=== PATIENT | female | born 1980 | race Caucasian/White ===

== ENCOUNTER 2017-09-24 12:47 | Emergency (ER) | payer OTHER ==
[~2017-09-24] VITALS: Ht 165.1 cm; Wt 80.7 kg
[~2017-09-24 12:47] MED LIST: CLEOCIN HCL150 MG PO; CLEOCIN HCL300 MG PO; FLEXERIL PO; HYDROCODONE-AP1 EAC6 PO; IBUPROFEN 200200 M1 PO; IBUPROFEN 400400 M2 PO; IBUPROFEN 800800 M1 PO; IBUPROFEN 800800 MG PO; LIDOCAINE VISC100 M1 SWISH&SPIT; MEDROLDOSEPACK PO; MOBIC7.5 MG PO; NAPROSYN500 MG PO; NOHOMEMEDICATIONS; NORCO 5-325 TA1 EAC1 PO; NORCO 5-325 TA1 EACH PO; ROBAXIN 750 MG750 M1 PO; TRAMADOL 50 MG50 MG PO; TYLENOL325 MG PO
[2017-09-24] MEDS ORDERED: NORCO 5-325 TA1 EAC1 PO (15:38)
[2017-09-24 16:18] VITALS: BP 121/85
[2018-05-13] MEDS ORDERED: NORCO 5-325 TA1 EACH PO (13:33)
[2018-05-13] MEDS ORDERED: MOBIC7.5 MG PO (13:33)
[2018-05-13] MEDS ORDERED: NORFLEX100 MG PO (13:33)
[2018-06-13] MEDS ORDERED: ULTRAM 50MG TAB50 MG PO (10:16)
[2018-06-13] MEDS ORDERED: CYCLOBENZAPRINE5 MG PO (10:16)
[2018-06-20] MEDS ORDERED: MOBIC15 MG PO (10:32)
[2018-06-20] MEDS ORDERED: ULTRAM 50MG TAB50 MG PO (10:32)
[2018-06-28] MEDS ORDERED: DICLOFENAC SODI25 MG PO (16:47)
== END 2017-09-24 16:19 | disposition home or self-care (01) ==
LOC: M.ERS 12:47
DX: S62.366A Nondisplaced fracture of neck of fifth metacarpal bone, right hand, initial encounter for closed fracture (principal); Y99.8 Other external cause status; V49.3XXA Car occupant (driver) (passenger) injured in unspecified nontraffic accident, initial encounter; Y93.89 Activity, other specified; Y92.89 Other specified places as the place of occurrence of the external cause; Z90.710 Acquired absence of both cervix and uterus; Z98.890 Other specified postprocedural states; Z88.5 Allergy status to narcotic agent; Z88.0 Allergy status to penicillin

== ENCOUNTER 2017-10-15 09:36 | Emergency (ER) | payer OTHER ==
[~2017-10-15] VITALS: Ht 165.1 cm; Wt 80.7 kg
[2017-10-15] MEDS ORDERED: IBUPROFEN 800800 MG PO (09:53)
[2017-10-15] MEDS ORDERED: HYDROCODON-ACE1 EAC7 PO (09:53)
[2017-10-15] MEDS ORDERED: FLEXERIL PO (09:53)
[2017-10-15 10:14] VITALS: BP 132/96
[2018-05-13] MEDS ORDERED: NORFLEX100 MG PO (13:33)
[2018-05-13] MEDS ORDERED: NORCO 5-325 TA1 EACH PO (13:33)
[2018-05-13] MEDS ORDERED: MOBIC7.5 MG PO (13:33)
[2018-06-13] MEDS ORDERED: CYCLOBENZAPRINE5 MG PO (10:16)
[2018-06-13] MEDS ORDERED: ULTRAM 50MG TAB50 MG PO (10:16)
[2018-06-20] MEDS ORDERED: MOBIC15 MG PO (10:32)
[2018-06-20] MEDS ORDERED: ULTRAM 50MG TAB50 MG PO (10:32)
[2018-06-28] MEDS ORDERED: DICLOFENAC SODI25 MG PO (16:47)
== END 2017-10-15 10:16 | disposition home or self-care (01) ==
LOC: M.ERS 09:36
DX: S39.012A Strain of muscle, fascia and tendon of lower back, initial encounter (principal); Z90.710 Acquired absence of both cervix and uterus; Z98.890 Other specified postprocedural states; Z88.0 Allergy status to penicillin; Z88.5 Allergy status to narcotic agent; Z88.8 Allergy status to other drugs, medicaments and biological substances; X58.XXXA Exposure to other specified factors, initial encounter; Y93.89 Activity, other specified; Y92.89 Other specified places as the place of occurrence of the external cause; Y99.8 Other external cause status

== ENCOUNTER 2017-10-31 09:37 | Emergency (ER) | payer OTHER ==
[~2017-10-31] VITALS: Ht 165.1 cm; Wt 80.7 kg
[~2017-10-31 09:37] MED LIST changes: +HYDROCODON-ACE1 EAC7 PO
[2017-10-31] MEDS ORDERED: ULTRAM 50MG TAB50 MG PO (10:39)
[2017-10-31 10:46] VITALS: BP 149/95
[2018-05-13] MEDS ORDERED: MOBIC7.5 MG PO (13:33)
[2018-05-13] MEDS ORDERED: NORCO 5-325 TA1 EACH PO (13:33)
[2018-05-13] MEDS ORDERED: NORFLEX100 MG PO (13:33)
[2018-06-13] MEDS ORDERED: ULTRAM 50MG TAB50 MG PO (10:16)
[2018-06-13] MEDS ORDERED: CYCLOBENZAPRINE5 MG PO (10:16)
[2018-06-20] MEDS ORDERED: ULTRAM 50MG TAB50 MG PO (10:32)
[2018-06-20] MEDS ORDERED: MOBIC15 MG PO (10:32)
[2018-06-28] MEDS ORDERED: DICLOFENAC SODI25 MG PO (16:47)
== END 2017-10-31 10:46 | disposition home or self-care (01) ==
LOC: M.ERS 09:37
DX: S60.221A Contusion of right hand, initial encounter (principal); Z88.0 Allergy status to penicillin; Z88.5 Allergy status to narcotic agent; W22.8XXA Striking against or struck by other objects, initial encounter; Y93.89 Activity, other specified; Y92.89 Other specified places as the place of occurrence of the external cause; Y99.8 Other external cause status

== ENCOUNTER 2017-11-21 09:43 | Emergency (ER) | payer OTHER ==
[~2017-11-21] VITALS: Ht 165.1 cm; Wt 80.7 kg
[~2017-11-21 09:43] MED LIST changes: +ULTRAM 50MG TAB50 MG PO
[2017-11-21] MEDS ORDERED: HYDROCODONE-AP1 EAC6 PO (10:57)
[2017-11-21 11:21] VITALS: BP 127/82
[2018-05-13] MEDS ORDERED: NORCO 5-325 TA1 EACH PO (13:33)
[2018-05-13] MEDS ORDERED: NORFLEX100 MG PO (13:33)
[2018-05-13] MEDS ORDERED: MOBIC7.5 MG PO (13:33)
[2018-06-13] MEDS ORDERED: CYCLOBENZAPRINE5 MG PO (10:16)
[2018-06-13] MEDS ORDERED: ULTRAM 50MG TAB50 MG PO (10:16)
[2018-06-20] MEDS ORDERED: ULTRAM 50MG TAB50 MG PO (10:32)
[2018-06-20] MEDS ORDERED: MOBIC15 MG PO (10:32)
[2018-06-28] MEDS ORDERED: DICLOFENAC SODI25 MG PO (16:47)
== END 2017-11-21 11:23 | disposition home or self-care (01) ==
LOC: M.ERS 09:43
DX: M25.511 Pain in right shoulder (principal); Z88.6 Allergy status to analgesic agent; Z88.5 Allergy status to narcotic agent; Z88.0 Allergy status to penicillin

== ENCOUNTER 2017-12-19 09:46 | Emergency (ER) | payer OTHER ==
[~2017-12-19] VITALS: Ht 165.1 cm; Wt 80.7 kg
[2017-12-19 09:53] VITALS: BP 137/105
[2017-12-19] MEDS ORDERED: FLEXERIL PO (10:20)
[2017-12-19] MEDS ORDERED: PERCOCET PO (10:20)
[2018-05-13] MEDS ORDERED: NORFLEX100 MG PO (13:33)
[2018-05-13] MEDS ORDERED: MOBIC7.5 MG PO (13:33)
[2018-05-13] MEDS ORDERED: NORCO 5-325 TA1 EACH PO (13:33)
[2018-06-13] MEDS ORDERED: ULTRAM 50MG TAB50 MG PO (10:16)
[2018-06-13] MEDS ORDERED: CYCLOBENZAPRINE5 MG PO (10:16)
[2018-06-20] MEDS ORDERED: MOBIC15 MG PO (10:32)
[2018-06-20] MEDS ORDERED: ULTRAM 50MG TAB50 MG PO (10:32)
[2018-06-28] MEDS ORDERED: DICLOFENAC SODI25 MG PO (16:47)
== END 2017-12-19 10:32 | disposition home or self-care (01) ==
LOC: M.ERS 09:46
DX: S33.5XXA Sprain of ligaments of lumbar spine, initial encounter (principal); X58.XXXA Exposure to other specified factors, initial encounter; Y93.89 Activity, other specified; Y92.89 Other specified places as the place of occurrence of the external cause; Y99.8 Other external cause status; Z90.49 Acquired absence of other specified parts of digestive tract; Z90.710 Acquired absence of both cervix and uterus; Z88.0 Allergy status to penicillin; Z88.5 Allergy status to narcotic agent

== ENCOUNTER 2018-01-09 12:28 | Emergency (ER) | payer OTHER ==
[~2018-01-09] VITALS: Ht 165.1 cm; Wt 80.7 kg
[~2018-01-09 12:28] MED LIST changes: +PERCOCET PO
[2018-01-09] MEDS ORDERED: NOHOMEMEDICATIONS (12:40)
[2018-01-09 13:29] VITALS: BP 135/79
[2018-05-13] MEDS ORDERED: NORFLEX100 MG PO (13:33)
[2018-05-13] MEDS ORDERED: NORCO 5-325 TA1 EACH PO (13:33)
[2018-05-13] MEDS ORDERED: MOBIC7.5 MG PO (13:33)
[2018-06-13] MEDS ORDERED: ULTRAM 50MG TAB50 MG PO (10:16)
[2018-06-13] MEDS ORDERED: CYCLOBENZAPRINE5 MG PO (10:16)
[2018-06-20] MEDS ORDERED: ULTRAM 50MG TAB50 MG PO (10:32)
[2018-06-20] MEDS ORDERED: MOBIC15 MG PO (10:32)
[2018-06-28] MEDS ORDERED: DICLOFENAC SODI25 MG PO (16:47)
== END 2018-01-09 13:31 | disposition home or self-care (01) ==
LOC: M.ERS 12:28
DX: M25.511 Pain in right shoulder (principal); Z76.5 Malingerer [conscious simulation]; Z90.49 Acquired absence of other specified parts of digestive tract; Z90.710 Acquired absence of both cervix and uterus; Z88.5 Allergy status to narcotic agent; Z88.0 Allergy status to penicillin

== ENCOUNTER 2018-04-09 10:16 | Emergency (ER) | payer OTHER ==
[~2018-04-09] VITALS: Ht 165.1 cm; Wt 80.7 kg
[2018-04-09] MEDS ORDERED: FLEXERIL PO (10:42)
[2018-04-09] MEDS ORDERED: IBUPROFEN 800800 M1 PO (10:42)
[2018-04-09] MEDS ORDERED: TRAMADOL 50 MG50 MG PO (10:42)
[2018-04-09 10:45] VITALS: BP 139/88
[2018-05-13] MEDS ORDERED: NORFLEX100 MG PO (13:33)
[2018-05-13] MEDS ORDERED: MOBIC7.5 MG PO (13:33)
[2018-05-13] MEDS ORDERED: NORCO 5-325 TA1 EACH PO (13:33)
[2018-06-13] MEDS ORDERED: ULTRAM 50MG TAB50 MG PO (10:16)
[2018-06-13] MEDS ORDERED: CYCLOBENZAPRINE5 MG PO (10:16)
[2018-06-20] MEDS ORDERED: ULTRAM 50MG TAB50 MG PO (10:32)
[2018-06-20] MEDS ORDERED: MOBIC15 MG PO (10:32)
[2018-06-28] MEDS ORDERED: DICLOFENAC SODI25 MG PO (16:47)
== END 2018-04-09 10:53 | disposition home or self-care (01) ==
LOC: M.ERS 10:16
DX: M54.31 Sciatica, right side (principal); Z90.49 Acquired absence of other specified parts of digestive tract; Z90.710 Acquired absence of both cervix and uterus; Z88.0 Allergy status to penicillin; Z88.5 Allergy status to narcotic agent

== ENCOUNTER 2018-05-21 12:45 | Emergency (ER) | payer OTHER ==
[~2018-05-21] VITALS: Ht 165.1 cm; Wt 80.7 kg
[~2018-05-21 12:45] MED LIST changes: +NORFLEX100 MG PO
[2018-05-21 14:33] VITALS: BP 141/93
[2018-05-21] MEDS ORDERED: NORFLEX100 MG PO (17:45)
[2018-05-21] MEDS ORDERED: ULTRAM 50MG TAB50 MG PO (17:45)
[2018-05-21] MEDS ORDERED: NABUMETONE 750750 M1 PO (17:45)
[2018-06-13] MEDS ORDERED: ULTRAM 50MG TAB50 MG PO (10:16)
[2018-06-13] MEDS ORDERED: CYCLOBENZAPRINE5 MG PO (10:16)
[2018-06-20] MEDS ORDERED: MOBIC15 MG PO (10:32)
[2018-06-20] MEDS ORDERED: ULTRAM 50MG TAB50 MG PO (10:32)
== END 2018-05-21 14:34 | disposition home or self-care (01) ==
LOC: M.ERS 12:45
DX: M25.511 Pain in right shoulder (principal); Z90.49 Acquired absence of other specified parts of digestive tract; Z90.710 Acquired absence of both cervix and uterus; Z88.0 Allergy status to penicillin; Z88.5 Allergy status to narcotic agent; Z88.8 Allergy status to other drugs, medicaments and biological substances

== ENCOUNTER 2018-12-23 19:51 | Emergency (ER) | payer OTHER ==
[~2018-12-23] VITALS: Ht 165.1 cm; Wt 80.7 kg
[~2018-12-23 19:51] MED LIST changes: +CYCLOBENZAPRINE5 MG PO; +DICLOFENAC SODI25 MG PO; +DICLOFENAC SODI75 MG PO; +KEFLEX500 M1 PO; +MOBIC15 MG PO; +NABUMETONE 750750 M1 PO; +PREDNISONE 20 M20 MG PO; +VOLTAREN GEL 1100 G2 TOP
[2018-12-23] MEDS ORDERED: NORCO 5-325 TA1 EACH PO ×2 (20:19→20:21)
[2018-12-23 20:35] VITALS: BP 131/86
== END 2018-12-23 20:35 | disposition home or self-care (01) ==
LOC: M.ERS 19:51
DX: M25.511 Pain in right shoulder (principal); Z88.6 Allergy status to analgesic agent; Z88.5 Allergy status to narcotic agent; Z88.0 Allergy status to penicillin; Z90.710 Acquired absence of both cervix and uterus; Z90.89 Acquired absence of other organs; Z90.49 Acquired absence of other specified parts of digestive tract

== ENCOUNTER 2019-04-06 12:11 | Emergency (ER) | payer OTHER ==
[~2019-04-06] VITALS: Ht 165.1 cm; Wt 80.7 kg
[2019-04-06] MEDS ORDERED: MOBIC7.5 MG PO (12:52)
[2019-04-06 13:17] VITALS: BP 141/82
== END 2019-04-06 13:18 | disposition home or self-care (01) ==
LOC: M.ERS 12:11
DX: G89.29 Other chronic pain (principal); M25.511 Pain in right shoulder; Z88.0 Allergy status to penicillin; Z88.5 Allergy status to narcotic agent; Z88.6 Allergy status to analgesic agent; Z90.49 Acquired absence of other specified parts of digestive tract; Z90.710 Acquired absence of both cervix and uterus; Z98.890 Other specified postprocedural states

== ENCOUNTER 2019-09-14 14:57 | Emergency (ER) | payer OTHER ==
[~2019-09-14] VITALS: Ht 165.1 cm; Wt 80.7 kg
[2019-09-14] MEDS ORDERED: TRAMADOL 50 MG50 MG PO (16:09)
[2019-09-14 16:40] VITALS: BP 125/82
== END 2019-09-14 16:41 | disposition home or self-care (01) ==
LOC: M.ERS 14:57
DX: S43.491A Other sprain of right shoulder joint, initial encounter (principal); Z90.89 Acquired absence of other organs; Z90.49 Acquired absence of other specified parts of digestive tract; Z90.710 Acquired absence of both cervix and uterus; Z98.890 Other specified postprocedural states; Z88.6 Allergy status to analgesic agent; Z88.0 Allergy status to penicillin; Z88.5 Allergy status to narcotic agent; X50.0XXA Overexertion from strenuous movement or load, initial encounter; Y92.89 Other specified places as the place of occurrence of the external cause; Y93.89 Activity, other specified; Y99.8 Other external cause status

== ENCOUNTER 2019-10-05 19:16 | Emergency (ER) | payer OTHER ==
[~2019-10-05] VITALS: Ht 165.1 cm; Wt 80.7 kg
[2019-10-05] MEDS ORDERED: FLEXERIL PO (20:33)
[2019-10-05] MEDS ORDERED: HYDROCODON-ACE1 EAC7 PO (20:33)
[2019-10-05 20:43] VITALS: BP 143/98
== END 2019-10-05 20:45 | disposition home or self-care (01) ==
LOC: M.ERS 19:16
DX: M54.5 Low back pain (principal); Z90.89 Acquired absence of other organs; Z90.710 Acquired absence of both cervix and uterus; Z98.890 Other specified postprocedural states; Z88.6 Allergy status to analgesic agent; Z88.0 Allergy status to penicillin; Z88.5 Allergy status to narcotic agent

== ENCOUNTER 2019-11-20 19:33 | Emergency (ER) | payer OTHER ==
[~2019-11-20] VITALS: Ht 167.6 cm; Wt 70.3 kg
[2019-11-20] MEDS ORDERED: IBUPROFEN 800800 M1 PO (20:14)
[2019-11-20] MEDS ORDERED: NORCO 5-325 TA1 EAC1 PO (20:14)
[2019-11-20 20:37] VITALS: BP 138/96
== END 2019-11-20 20:37 | disposition home or self-care (01) ==
LOC: M.ERS 19:33
DX: M25.511 Pain in right shoulder (principal); Z90.710 Acquired absence of both cervix and uterus; Z90.49 Acquired absence of other specified parts of digestive tract; Z88.0 Allergy status to penicillin; Z88.6 Allergy status to analgesic agent

== ENCOUNTER 2019-11-26 13:43 | Emergency (ER) | payer OTHER ==
[~2019-11-26] VITALS: Ht 165.1 cm; Wt 80.7 kg
[2019-11-26] MEDS ORDERED: NAPROSYN500 MG PO ×2 (15:25→15:26)
[2019-11-26] MEDS ORDERED: NORCO 5-325 TA1 EAC1 PO (15:25)
[2019-11-26] MEDS ORDERED: MEDROLDOSEPACK PO (15:25)
[2019-11-26 15:38] VITALS: BP 145/85
== END 2019-11-26 15:38 | disposition home or self-care (01) ==
LOC: M.ERS 13:43
DX: S39.012A Strain of muscle, fascia and tendon of lower back, initial encounter (principal); M54.42 Lumbago with sciatica, left side; Z90.710 Acquired absence of both cervix and uterus; Z90.49 Acquired absence of other specified parts of digestive tract; Z88.0 Allergy status to penicillin; Z88.6 Allergy status to analgesic agent; X50.0XXA Overexertion from strenuous movement or load, initial encounter; Y93.89 Activity, other specified; Y92.89 Other specified places as the place of occurrence of the external cause; Y99.8 Other external cause status

== ENCOUNTER 2019-12-09 20:22 | Emergency (ER) | payer OTHER ==
[~2019-12-09] VITALS: Ht 165.1 cm; Wt 80.7 kg
[2019-12-09] MEDS ORDERED: NORCO 5-325 TA1 EAC1 PO (21:17)
[2019-12-09 21:41] VITALS: BP 159/96
== END 2019-12-09 21:42 | disposition home or self-care (01) ==
LOC: M.ERS 20:22
DX: M25.512 Pain in left shoulder (principal); Z90.710 Acquired absence of both cervix and uterus; Z90.49 Acquired absence of other specified parts of digestive tract; Z88.0 Allergy status to penicillin; Z88.6 Allergy status to analgesic agent

== ENCOUNTER 2019-12-23 17:55 | Emergency (ER) | payer OTHER ==
[~2019-12-23] VITALS: Ht 165.1 cm; Wt 80.7 kg
[2019-12-23] MEDS ORDERED: IBUPROFEN 800800 MG PO (18:18)
[2019-12-23] MEDS ORDERED: FLEXERIL PO (18:18)
[2019-12-23 18:24] VITALS: BP 143/95
== END 2019-12-23 18:25 | disposition home or self-care (01) ==
LOC: M.ERS 17:55
DX: M54.5 Low back pain (principal); Z88.0 Allergy status to penicillin; Z88.6 Allergy status to analgesic agent; Z90.49 Acquired absence of other specified parts of digestive tract; Z90.710 Acquired absence of both cervix and uterus; Z90.89 Acquired absence of other organs

== ENCOUNTER 2020-01-05 14:41 | Emergency (ER) | payer OTHER ==
[~2020-01-05] VITALS: Ht 165.1 cm; Wt 80.7 kg
[2020-01-05 16:19] LABS: URINE BILIRUBIN NEGATIVE (Negative); URINE BLOOD 1+ (Negative); URINE CLARITY CLEAR; URINE COLOR YELLOW; URINE GLUCOSE-RANDOM NEGATIVE (Negative); URINE KETONES NEGATIVE (Negative); URINE LEUKOCYTES-REFLEX NEGATIVE (Negative); URINE NITRITE-REFLEX NEGATIVE (Negative); URINE PROTEIN NEGATIVE (Negative); URINE SPECIFIC GRAVITY <= 1.005 (1.005-1.030); URINE UROBILINOGEN 0.2 E.U./dl (0.2-1.0)
[2020-01-05] MEDS ORDERED: PREDNISONE 10 M10 M1 PO (16:30)
[2020-01-05] MEDS ORDERED: MELOXICAM15 MG PO (16:30)
[2020-01-05] MEDS ORDERED: DIAZEPAM 5 MG5 MG PO (16:30)
[2020-01-05 16:33] LABS: BACTERIA-REFLEX 1-9 Few /HPF (None Seen); CASTS None Seen /LPF (None Seen); CRYSTALS None Seen /LPF (None Seen); MUCUS None Seen strn/LPF (None Seen); SQUAMOUS >10 Many /LPF (0-3)
[2020-01-05 16:35] LABS: URINE RBC 0-2 Rare /HPF (0-2); URINE WBC-REFLEX 0-5 Rare /HPF (0-5)
[2020-01-05 16:39] LABS: AMP/METHAMP Negative (Negative); BARBITURATES Negative (Negative); BENZODIAZEPINES Negative (Negative); COCAINE Negative (Negative); METHADONE Negative (Negative); OPIATES Negative (Negative); PCP Negative (Negative); THC Negative (Negative)
[2020-01-05] MEDS ORDERED: HYDROCODON-ACE1 EAC7 PO (16:55)
[2020-01-05 17:14] VITALS: BP 129/93
== END 2020-01-05 17:15 | disposition home or self-care (01) ==
LOC: M.ERS 14:41
PROVIDERS: Personal Emergency Response Attendant
DX: S33.5XXA Sprain of ligaments of lumbar spine, initial encounter (principal); Z88.5 Allergy status to narcotic agent; Z88.6 Allergy status to analgesic agent; Z88.0 Allergy status to penicillin; Z90.710 Acquired absence of both cervix and uterus; Z90.89 Acquired absence of other organs; Z79.899 Other long term (current) drug therapy; X58.XXXA Exposure to other specified factors, initial encounter; Y93.89 Activity, other specified; Y92.89 Other specified places as the place of occurrence of the external cause; Y99.8 Other external cause status

== ENCOUNTER 2020-02-01 20:32 | Emergency (ER) | payer OTHER ==
[~2020-02-01] VITALS: Ht 165.1 cm; Wt 80.7 kg
[~2020-02-01 20:32] MED LIST changes: +DIAZEPAM 5 MG5 MG PO; +MELOXICAM15 MG PO; +PREDNISONE 10 M10 M1 PO
[2020-02-01] MEDS ORDERED: LIDODERM1 EACH TRANSDERM (21:04)
[2020-02-01] MEDS ORDERED: NAPROSYN500 MG PO (21:04)
[2020-02-01 21:45] VITALS: BP 145/84
== END 2020-02-01 21:46 | disposition home or self-care (01) ==
LOC: M.ERS 20:32
DX: M25.511 Pain in right shoulder (principal); Z88.6 Allergy status to analgesic agent; Z88.5 Allergy status to narcotic agent; Z88.0 Allergy status to penicillin; Z90.710 Acquired absence of both cervix and uterus; Z90.89 Acquired absence of other organs; Z90.49 Acquired absence of other specified parts of digestive tract; X50.0XXA Overexertion from strenuous movement or load, initial encounter; Y93.89 Activity, other specified; Y92.89 Other specified places as the place of occurrence of the external cause; Y99.9 Unspecified external cause status

== ENCOUNTER 2020-02-08 21:13 | Emergency (ER) | payer OTHER ==
[~2020-02-08] VITALS: Ht 165.1 cm; Wt 80.7 kg
[~2020-02-08 21:13] MED LIST changes: +LIDODERM1 EACH TRANSDERM
[2020-02-08 22:00] LABS: URINE BILIRUBIN NEGATIVE (Negative); URINE BLOOD TRACE (Negative); URINE CLARITY CLEAR; URINE COLOR YELLOW; URINE GLUCOSE-RANDOM NEGATIVE (Negative); URINE KETONES NEGATIVE (Negative); URINE LEUKOCYTES-REFLEX NEGATIVE (Negative); URINE NITRITE-REFLEX NEGATIVE (Negative); URINE PROTEIN NEGATIVE (Negative); URINE SPECIFIC GRAVITY >= 1.030 (1.005-1.030)
[2020-02-08 22:27] LABS: ABSOLUTE BASOPHILS 0.1 thou/uL (0.0-0.2); ABSOLUTE EOSINOPHILS 0.2 thou/uL (0.0-0.7); ABSOLUTE LYMPHOCYTES 3.7 thou/uL (0.8-5.3); ABSOLUTE MONOCYTES 0.8 thou/uL (0.0-1.2); ABSOLUTE NEUTROPHILS 6.5 thou/uL (1.6-8.1); BASOPHILS 0.9 %; EOSINOPHILS 1.5 %; HEMATOCRIT 42.7 % (37.0-47.0); HEMOGLOBIN 14.5 gm/dL (12.0-15.0); LYMPHOCYTES 32.9 %; MCH 31.5 pg (26.0-34.0); MCHC 33.9 g/dL (28.0-37.0); MCV 92.7 fL (80.0-100.0); MONOCYTES 6.8 %; MPV 6.9 fl. (7.2-11.1); NUCLEATED RBCS 0 /100WBC; PLATELET COUNT* 377 thou/uL (150-400); POLYS 57.9 %; RBC 4.61 mil/uL (4.20-5.00); RDW-CV 12.8 % (10.5-14.5); WBC 11.3 thou/uL (4.0-11.0)
[2020-02-08 22:34] LABS: CREATININE 0.8 mg/dL (0.6-1.3); POTASSIUM 3.6 mmol/L (3.5-5.1)
[2020-02-08 22:39] LABS: ALBUMIN 3.6 g/dL (3.4-5.0); TOTAL BILIRUBIN 0.8 mg/dL (<0.1-1.0); TOTAL PROTEIN 7.9 g/dL (6.4-8.2)
[2020-02-08] MEDS ORDERED: DIAZEPAM 5 MG5 M1 PO (23:41)
[2020-02-08] MEDS ORDERED: EC-NAPROSYN500 M1 PO (23:41)
[2020-02-08 23:44] VITALS: BP 141/74
[2020-02-10 09:08] LABS: HEPATITIS B SURFACE AG Negative (Negative)
== END 2020-02-08 23:52 | disposition home or self-care (01) ==
LOC: M.ERS 21:13
PROVIDERS: Personal Emergency Response Attendant
DX: N83.202 Unspecified ovarian cyst, left side (principal); Z88.0 Allergy status to penicillin; Z88.5 Allergy status to narcotic agent; Z88.6 Allergy status to analgesic agent; Z90.710 Acquired absence of both cervix and uterus; Z90.89 Acquired absence of other organs

== ENCOUNTER 2020-04-01 13:11 | Emergency (ER) | payer OTHER ==
[~2020-04-01] VITALS: Ht 165.1 cm; Wt 79.4 kg
[~2020-04-01 13:11] MED LIST changes: +DIAZEPAM 5 MG5 M1 PO; +EC-NAPROSYN500 M1 PO
[2020-04-01 13:41] LABS: ABSOLUTE BASOPHILS 0.1 thou/uL (0.0-0.2); ABSOLUTE EOSINOPHILS 0.2 thou/uL (0.0-0.7); ABSOLUTE LYMPHOCYTES 3.5 thou/uL (0.8-5.3); ABSOLUTE MONOCYTES 0.7 thou/uL (0.0-1.2); ABSOLUTE NEUTROPHILS 4.4 thou/uL (1.6-8.1); BASOPHILS 1.2 %; EOSINOPHILS 2.8 %; HEMATOCRIT 40.2 % (37.0-47.0); HEMOGLOBIN 13.8 gm/dL (12.0-15.0); LYMPHOCYTES 38.6 %; MCH 31.1 pg (26.0-34.0); MCHC 34.3 g/dL (28.0-37.0); MCV 90.8 fL (80.0-100.0); MONOCYTES 8.1 %; MPV 7.2 fl. (7.2-11.1); NUCLEATED RBCS 0 /100WBC; PLATELET COUNT* 385 thou/uL (150-400); POLYS 49.3 %; RBC 4.43 mil/uL (4.20-5.00); RDW-CV 12.8 % (10.5-14.5)
[2020-04-01 13:48] LABS: CALCIUM 8.5 mg/dL (8.5-10.1); POTASSIUM 3.9 mmol/L (3.5-5.1)
[2020-04-01 13:53] LABS: ALBUMIN 3.4 g/dL (3.4-5.0); TOTAL BILIRUBIN 0.7 mg/dL (<0.1-1.0); TOTAL PROTEIN 7.4 g/dL (6.4-8.2)
[2020-04-01 14:51] VITALS: BP 148/95
== END 2020-04-01 14:52 | disposition home or self-care (01) ==
LOC: M.ERS 13:11
PROVIDERS: Emergency Medicine
DX: K91.873 Postprocedural seroma of a digestive system organ or structure following other procedure (principal); Z88.6 Allergy status to analgesic agent; Z88.5 Allergy status to narcotic agent; Z88.0 Allergy status to penicillin; Z90.710 Acquired absence of both cervix and uterus; Z98.890 Other specified postprocedural states; Z90.49 Acquired absence of other specified parts of digestive tract

== ENCOUNTER 2020-04-07 22:10 | Emergency (ER) | payer OTHER ==
[~2020-04-07] VITALS: Ht 165.1 cm; Wt 80.7 kg
[2020-04-07 22:46] LABS: URINE BILIRUBIN NEGATIVE (Negative); URINE BLOOD 1+ (Negative); URINE CLARITY CLEAR; URINE COLOR YELLOW; URINE GLUCOSE-RANDOM NEGATIVE (Negative); URINE KETONES NEGATIVE (Negative); URINE LEUKOCYTES-REFLEX NEGATIVE (Negative); URINE NITRITE-REFLEX NEGATIVE (Negative); URINE PROTEIN NEGATIVE (Negative); URINE SPECIFIC GRAVITY >= 1.030 (1.005-1.030); URINE UROBILINOGEN 0.2 E.U./dl (0.2-1.0)
[2020-04-07 22:54] LABS: AMP/METHAMP Negative (Negative); BARBITURATES Negative (Negative); BENZODIAZEPINES POSITIVE (Negative); COCAINE Negative (Negative); METHADONE Negative (Negative); OPIATES POSITIVE (Negative); PCP Negative (Negative); THC POSITIVE (Negative)
[2020-04-07 22:55] LABS: BACTERIA-REFLEX >30 Many /HPF (None Seen); CASTS None Seen /LPF (None Seen); CRYSTALS None Seen /LPF (None Seen); MUCUS 4-6 Moderate strn/LPF (None Seen); SQUAMOUS 4-10 Moderate /LPF (0-3); TRANSITIONAL EPITHEL CELL 0-3 Few /LPF (None Seen); URINE RBC 3-10 Few /HPF (0-2); URINE WBC-REFLEX None Seen /HPF (0-5)
[2020-04-07] MEDS ORDERED: CYCLOBENZAPRINE5 MG PO (23:04)
[2020-04-07] MEDS ORDERED: MEDROLDOSEPACK PO (23:04)
[2020-04-07 23:17] VITALS: BP 143/92
== END 2020-04-07 23:18 | disposition home or self-care (01) ==
LOC: M.ERS 22:10
PROVIDERS: Personal Emergency Response Attendant
DX: S39.012A Strain of muscle, fascia and tendon of lower back, initial encounter (principal); Z88.6 Allergy status to analgesic agent; Z88.0 Allergy status to penicillin; Z90.710 Acquired absence of both cervix and uterus; Z90.49 Acquired absence of other specified parts of digestive tract; X50.1XXA Overexertion from prolonged static or awkward postures, initial encounter; Y93.89 Activity, other specified; Y92.89 Other specified places as the place of occurrence of the external cause; Y99.9 Unspecified external cause status

== ENCOUNTER 2020-04-12 17:22 | Emergency (ER) | payer OTHER ==
[~2020-04-12] VITALS: Ht 165.1 cm; Wt 80.7 kg
[2020-04-12] MEDS ORDERED: NORCO 5-325 TA1 EAC2 PO (18:51)
[2020-04-12 19:07] VITALS: BP 149/99
== END 2020-04-12 19:07 | disposition home or self-care (01) ==
LOC: M.ERS 17:22
DX: M25.511 Pain in right shoulder (principal); Z90.710 Acquired absence of both cervix and uterus; Z90.49 Acquired absence of other specified parts of digestive tract; Z88.0 Allergy status to penicillin; Z88.6 Allergy status to analgesic agent

== ENCOUNTER 2020-04-21 11:44 | Emergency (ER) | payer OTHER ==
[~2020-04-21] VITALS: Ht 165.1 cm; Wt 80.7 kg
[~2020-04-21 11:44] MED LIST changes: +NORCO 5-325 TA1 EAC2 PO
[2020-04-21 12:33] LABS: URINE BLOOD TRACE (Negative); URINE CLARITY CLEAR; URINE COLOR YELLOW; URINE GLUCOSE-RANDOM NEGATIVE (Negative); URINE KETONES NEGATIVE (Negative); URINE LEUKOCYTES-REFLEX NEGATIVE (Negative); URINE NITRITE-REFLEX NEGATIVE (Negative); URINE PROTEIN TRACE (Negative); URINE SPECIFIC GRAVITY 1.025 (1.005-1.030); URINE UROBILINOGEN 0.2 E.U./dl (0.2-1.0)
[2020-04-21 12:44] LABS: ICTOTEST (BILI CONFIRMATORY) Negative (Negative); URINE BILIRUBIN 1+ (Negative)
[2020-04-21 13:12] LABS: ABSOLUTE BASOPHILS 0.1 thou/uL (0.0-0.2); ABSOLUTE LYMPHOCYTES 2.5 thou/uL (0.8-5.3); ABSOLUTE MONOCYTES 0.6 thou/uL (0.0-1.2); ABSOLUTE NEUTROPHILS 7.2 thou/uL (1.6-8.1); BASOPHILS 0.7 %; EOSINOPHILS 0.3 %; HEMATOCRIT 40.2 % (37.0-47.0); HEMOGLOBIN 13.8 gm/dL (12.0-15.0); LYMPHOCYTES 23.8 %; MCH 30.6 pg (26.0-34.0); MCHC 34.3 g/dL (28.0-37.0); MCV 89.3 fL (80.0-100.0); MONOCYTES 6.1 %; MPV 6.3 fl. (7.2-11.1); NUCLEATED RBCS 0 /100WBC; PLATELET COUNT* 352 thou/uL (150-400); POLYS 69.1 %; WBC 10.3 thou/uL (4.0-11.0)
[2020-04-21 13:29] LABS: CALCIUM 8.8 mg/dL (8.5-10.1); POTASSIUM 3.5 mmol/L (3.5-5.1)
[2020-04-21 13:31] LABS: ALBUMIN 3.6 g/dL (3.4-5.0); TOTAL PROTEIN 7.8 g/dL (6.4-8.2)
[2020-04-21] MEDS ORDERED: BENTYL 20 MG TA20 M1 PO (14:26)
[2020-04-21] MEDS ORDERED: ONDANSETRON HCL4 M2 PO (14:49)
[2020-04-21 14:56] VITALS: BP 134/85
== END 2020-04-21 14:56 | disposition home or self-care (01) ==
LOC: M.ERS 11:44
PROVIDERS: Nurse Practitioner Family
DX: R10.32 Left lower quadrant pain (principal); R94.5 Abnormal results of liver function studies; Z88.6 Allergy status to analgesic agent; Z88.5 Allergy status to narcotic agent; Z88.0 Allergy status to penicillin; Z90.710 Acquired absence of both cervix and uterus; Z90.49 Acquired absence of other specified parts of digestive tract; Z98.890 Other specified postprocedural states

== ENCOUNTER 2020-05-08 17:50 | Emergency (ER) | payer OTHER ==
[~2020-05-08] VITALS: Ht 165.1 cm; Wt 86.2 kg
[~2020-05-08 17:50] MED LIST changes: +BENTYL 20 MG TA20 M1 PO; +ONDANSETRON HCL4 M2 PO
[2020-05-08] MEDS ORDERED: FLEXERIL PO ×2 (18:40→18:43)
[2020-05-08 18:49] VITALS: BP 160/75
== END 2020-05-08 18:49 | disposition home or self-care (01) ==
LOC: M.ERS 17:50
DX: M62.830 Muscle spasm of back (principal); Z90.710 Acquired absence of both cervix and uterus; Z90.49 Acquired absence of other specified parts of digestive tract; Z90.721 Acquired absence of ovaries, unilateral; Z88.0 Allergy status to penicillin; Z88.6 Allergy status to analgesic agent

== ENCOUNTER 2020-06-06 19:59 | Emergency (ER) | payer OTHER ==
[~2020-06-06] VITALS: Ht 165.1 cm; Wt 80.7 kg
[2020-06-06] MEDS ORDERED: NORCO 5-325 TA1 EAC2 PO (20:40)
[2020-06-06] MEDS ORDERED: FLEXERIL PO (20:40)
[2020-06-06 21:34] VITALS: BP 147/94
== END 2020-06-06 21:37 | disposition home or self-care (01) ==
LOC: M.ERS 19:59
DX: M54.5 Low back pain (principal); Z88.6 Allergy status to analgesic agent; Z88.5 Allergy status to narcotic agent; Z88.0 Allergy status to penicillin; Z90.710 Acquired absence of both cervix and uterus; Z90.89 Acquired absence of other organs; Z90.49 Acquired absence of other specified parts of digestive tract

== ENCOUNTER 2020-07-22 10:46 | Emergency (ER) | payer OTHER ==
[~2020-07-22] VITALS: Ht 165.1 cm; Wt 80.7 kg
[2020-07-22] MEDS ORDERED: TRAMADOL 50 MG50 MG PO (11:30)
[2020-07-22] MEDS ORDERED: IBUPROFEN 800800 MG PO (11:30)
[2020-07-22 12:18] VITALS: BP 147/87
== END 2020-07-22 12:18 | disposition home or self-care (01) ==
LOC: M.ERS 10:46
DX: S60.221A Contusion of right hand, initial encounter (principal); Z90.710 Acquired absence of both cervix and uterus; Z90.89 Acquired absence of other organs; Z90.49 Acquired absence of other specified parts of digestive tract; Z88.6 Allergy status to analgesic agent; Z88.0 Allergy status to penicillin; Z88.5 Allergy status to narcotic agent; W22.8XXA Striking against or struck by other objects, initial encounter; Y93.89 Activity, other specified; Y92.89 Other specified places as the place of occurrence of the external cause; Y99.8 Other external cause status

== ENCOUNTER 2020-09-21 20:37 | Emergency (ER) | payer OTHER ==
[~2020-09-21] VITALS: Ht 165.1 cm; Wt 80.7 kg
[2020-09-21] MEDS ORDERED: NORCO5 PO (21:40)
[2020-09-21] MEDS ORDERED: FLEXERIL PO (21:40)
[2020-09-21] MEDS ORDERED: IBUPROFEN 800800 M1 PO (21:40)
[2020-09-21 22:00] VITALS: BP 148/79
== END 2020-09-21 22:00 | disposition home or self-care (01) ==
LOC: M.ERS 20:37
DX: S46.811A Strain of other muscles, fascia and tendons at shoulder and upper arm level, right arm, initial encounter (principal); Z90.710 Acquired absence of both cervix and uterus; Z90.89 Acquired absence of other organs; Z88.6 Allergy status to analgesic agent; Z88.5 Allergy status to narcotic agent; Z88.0 Allergy status to penicillin; X50.9XXA Other and unspecified overexertion or strenuous movements or postures, initial encounter; Y93.89 Activity, other specified; Y92.89 Other specified places as the place of occurrence of the external cause; Y99.8 Other external cause status

== ENCOUNTER 2020-10-12 01:22 | Emergency (ER) | payer OTHER ==
[~2020-10-12] VITALS: Ht 165.1 cm; Wt 80.7 kg
[~2020-10-12 01:22] MED LIST changes: +NORCO5 PO
[2020-10-12] MEDS ORDERED: FLEXERIL PO (01:37)
[2020-10-12] MEDS ORDERED: HYDROCODON-ACE1 EAC7 PO (01:37)
[2020-10-12 01:43] VITALS: BP 150/90
== END 2020-10-12 01:43 | disposition home or self-care (01) ==
LOC: M.ERS 01:22
DX: M54.5 Low back pain (principal); Z88.0 Allergy status to penicillin; Z88.5 Allergy status to narcotic agent; Z88.6 Allergy status to analgesic agent; Z90.89 Acquired absence of other organs; Z90.710 Acquired absence of both cervix and uterus; Z90.49 Acquired absence of other specified parts of digestive tract

== ENCOUNTER 2020-10-20 22:36 | Emergency (ER) | payer OTHER ==
[~2020-10-20] VITALS: Ht 165.1 cm; Wt 80.7 kg
[2020-10-20] MEDS ORDERED: MELOXICAM15 MG PO (23:55)
[2020-10-20] MEDS ORDERED: PREDNISONE50 MG PO (23:55)
[2020-10-21] VITALS: BP 144/87
== END 2020-10-21 00:01 | disposition home or self-care (01) ==
LOC: M.ERS 22:36
DX: M54.5 Low back pain (principal); G89.29 Other chronic pain; M25.552 Pain in left hip; Z90.711 Acquired absence of uterus with remaining cervical stump; Z90.89 Acquired absence of other organs; Z90.49 Acquired absence of other specified parts of digestive tract; Z98.890 Other specified postprocedural states; Z90.721 Acquired absence of ovaries, unilateral; Z79.899 Other long term (current) drug therapy; Z88.6 Allergy status to analgesic agent; Z88.5 Allergy status to narcotic agent; Z88.0 Allergy status to penicillin; X50.0XXA Overexertion from strenuous movement or load, initial encounter; Y93.89 Activity, other specified; Y92.89 Other specified places as the place of occurrence of the external cause; Y99.8 Other external cause status

== ENCOUNTER 2020-11-01 18:45 | Emergency (ER) | payer OTHER ==
[~2020-11-01] VITALS: Ht 165.1 cm; Wt 80.7 kg
[~2020-11-01 18:45] MED LIST changes: +PREDNISONE50 MG PO
[2020-11-01] MEDS ORDERED: FLEXERIL PO (19:52)
[2020-11-01] MEDS ORDERED: NABUMETONE 750750 M1 PO (19:52)
[2020-11-01 20:32] VITALS: BP 142/89
== END 2020-11-01 20:33 | disposition home or self-care (01) ==
LOC: M.ERS 18:45
DX: S93.491A Sprain of other ligament of right ankle, initial encounter (principal); S39.012A Strain of muscle, fascia and tendon of lower back, initial encounter; M25.511 Pain in right shoulder; Z90.49 Acquired absence of other specified parts of digestive tract; Z90.89 Acquired absence of other organs; Z90.710 Acquired absence of both cervix and uterus; Z88.0 Allergy status to penicillin; Z88.5 Allergy status to narcotic agent; Z88.6 Allergy status to analgesic agent; W01.0XXA Fall on same level from slipping, tripping and stumbling without subsequent striking against object, initial encounter; Y93.89 Activity, other specified; Y92.89 Other specified places as the place of occurrence of the external cause; Y99.8 Other external cause status

== ENCOUNTER 2021-03-28 13:02 | Emergency (ER) | payer OTHER ==
[~2021-03-28] VITALS: Ht 165.1 cm; Wt 80.7 kg
[2021-03-28] MEDS ORDERED: MELOXICAM15 MG PO (13:30)
[2021-03-28 13:31] VITALS: BP 134/79
== END 2021-03-28 13:32 | disposition home or self-care (01) ==
LOC: M.ERS 13:02
DX: S60.211A Contusion of right wrist, initial encounter (principal); G89.29 Other chronic pain; M54.9 Dorsalgia, unspecified; Z88.6 Allergy status to analgesic agent; Z88.5 Allergy status to narcotic agent; Z88.0 Allergy status to penicillin; W10.8XXA Fall (on) (from) other stairs and steps, initial encounter; Y93.89 Activity, other specified; Y92.89 Other specified places as the place of occurrence of the external cause; Y99.8 Other external cause status